=== PATIENT | male | born 1985 | race Caucasian/White ===

== ENCOUNTER 2020-05-24 14:17 | Emergency (ER) | payer MEDICAID ==
[~2020-05-24] VITALS: Ht 172.7 cm; Wt 73.0 kg
[~2020-05-24 14:17] MED LIST: DIVAL250 PO; OLAN2.5T3 PO
[2020-05-24 14:21] VITALS: BP 122/78
[2020-05-24] MEDS ORDERED: LORAZEPAM 2MG/ML CPJ IM ONE (14:30)
[2020-05-24] MEDS ORDERED: OLANZAPINE 10 MG/VIAL IM ONE (14:30)
== END 2020-05-24 15:54 | disposition left against medical advice (07) ==
LOC: ER 14:17
DX: F15.129 Other stimulant abuse with intoxication, unspecified (principal); F10.129 Alcohol abuse with intoxication, unspecified; Y90.9 Presence of alcohol in blood, level not specified; F20.9 Schizophrenia, unspecified
CPT/HCPCS: 99283; J2060; J3490

== ENCOUNTER 2022-03-08 22:18 | Emergency (ER) | payer MEDICAID ==
[~2022-03-08] VITALS: Ht 172.7 cm; Wt 82.0 kg
[2022-03-08] MEDS ORDERED: OLANZAPINE 10 MG/VIAL IM STA (22:35)
[2022-03-08 23:52] LABS: BASOPHILS % 0.3 % (0.0-2.0); EOSINOPHILS % 1.3 % (0.0-5.0); HEMATOCRIT. 41.1 % (42.0-52.0); HEMOGLOBIN. 13.7 g/dL (14.0-18.0); MEAN CORPUSCULAR HEMOGLOBIN 28.7 pg (28.0-32.0); MEAN CORPUSCULAR VOLUME 85.9 fL (80.0-94.0); MEAN PLATELET VOLUME 8.1 fl (7.4-10.4); MONOCYTES % 9.9 % (2.0-8.0); NEUTROPHILS % 65.5 % (40.0-76.0); PLATELET 267 x1000/uL (130-400); RED BLOOD CELL COUNT 4.79 mill/uL (4.7-6.1); RED CELL DISTRIBUTION WIDTH 14.6 % (11.6-14.6)
[2022-03-09 00:01] LABS: CHLORIDE 108 mEq/L (98-107)
[2022-03-09 00:11] LABS: ETHANOL BLOOD < 10 mg/dL
[2022-03-09] MEDS ORDERED: OLANZAPINE 10 MG/VIAL IM NR (01:15)
[2022-03-09 02:16] LABS: CLARITY URINE CLEAR (CLEAR); COLOR URINE YELLOW (YELLOW); KETONES URINE NEGATIVE (NEGATIVE); LEUKOCYTE ESTERASE URINE NEGATIVE (NEGATIVE); NITRITE URINE NEGATIVE (NEGATIVE); OCCULT BLOOD URINE NEGATIVE (NEGATIVE); PH URINE 6.5 (4.5-8.0); PROTEIN URINE TRACE (NEGATIVE); SPECIFIC GRAVITY URINE 1.013 (1.005-1.030); UROBILINOGEN URINE 0.2 E.U./dL (0.2-1.0)
[2022-03-09 02:36] LABS: *AMPHETAMINES SCREEN URINE NEGATIVE (NEGATIVE); *BARBITURATES SCREEN URINE NEGATIVE (NEGATIVE); *BENZODIAZEPINES SCREEN URINE NEGATIVE (NEGATIVE); *COCAINE SCREEN URINE NEGATIVE (NEGATIVE); CANNABINOID URINE SCREEN PRESUMTIVE POSITIVE (NEGATIVE); METHADONE URINE SCREEN NEGATIVE (NEGATIVE); OPIATES URINE SCREEN NEGATIVE (NEGATIVE); PHENCYCLIDINE URINE SCREEN NEGATIVE (NEGATIVE)
[2022-03-09] MEDS ORDERED: OLAN2.5T3 MT (03:54)
[2022-03-09] MEDS ORDERED: DIVAL250 MT (03:54)
[2022-03-09 04:01] VITALS: BP 132/84
== END 2022-03-09 04:07 | disposition home or self-care (01) ==
LOC: ER 22:18
DX: R44.0 Auditory hallucinations (principal); F12.10 Cannabis abuse, uncomplicated; F99 Mental disorder, not otherwise specified; Z76.0 Encounter for issue of repeat prescription; F15.10 Other stimulant abuse, uncomplicated
CPT/HCPCS: 36415; 80053; 80305; 80307; 80320; 80329; 81003; 85025; 96372; 99283; J3490; G0480